=== PATIENT | male | born 1950 | race Caucasian/White ===

== ENCOUNTER → 2018-08-11 | Day surgery (SDC) | payer BC ==
[2018-08-08 14:56] LABS: BASOPHILS % 0.5 % (0.0-1.0); EOSINOPHILS # (AUTO) 0.1 (0.0-0.4); EOSINOPHILS % 1.4 % (0.0-6.0); HEMATOCRIT 32.5 % (38.2-49.6); HEMOGLOBIN 10.8 g/dL (14.0-18.0); LYMPHOCYTES # (AUTO) 1.1 (1.0-3.2); LYMPHOCYTES % 19.6 % (18.0-39.1); MEAN CORPUSCULAR HEMOGLOBIN 30.6 pg (28-32); MEAN CORPUSCULAR HGB CONC 33.2 g/dL (31-35); MEAN CORPUSCULAR VOLUME 92.1 fL (81-99); MONOCYTES # (AUTO) 0.5 (0.2-0.8); MONOCYTES % 9.1 % (4.4-11.3); NEUTROPHILS % 69.1 % (38.7-80.0); PLATELET COUNT 226 x10e3/uL (140-360); RED BLOOD COUNT 3.53 x10e6/uL (4.3-5.7)
[~2018-08-11] MED LIST: AMIODARONE HCL200 MG PO; ASPIR-LOW81 MG PO; DEXTROSE 50% SYRINGE 50 ML IV ONE; FENTANYL CITRATE/PF 100MCG/2 ML INJ ONE; FUROSEMIDE20 MG PO; GLIMEPIRIDE2 MG PO; LEVOTHYROXINE88 MCG PO; LIDOCAINE HCL 2% LOCAL INJ 5 ML SDV VIAL INJ ONE; METFORMIN HCL500 MG PO; METOPROLOL TART50 MG PO; MIDAZOLAM HCL 2 MG/2 ML VIAL ONE; PROPOFOL IV EMULSION 10 MG/ML 50 ML VIAL ONE; SIMVASTATIN10 MG PO; ZESTRIL20 MG PO
--- OUTSIDE RECORDS SUMMARY | 2018-08-11 11:44 | XMS REPORT ---
[facility] Address Unknown Phone Unavailable Care Team Providers Care Tow Truck Operator Name Role Phone Unavailable Unavailable Payers Payer Name Policy Type Policy Number Effective Date Expiration Date Problems This patient has no known problems. Allergies, Adverse Reactions, Alerts Allergy Name Allergy Type Status Severity Reaction(s) Onset Date Inactive Date Treating Clinician Comments No Known Allergies DA Active U 2012-09-27 00:00:00 Medications This patient has no known medications. Results Test Description Test Time Test Comments Text Results Atomic Results Result Comments GLUBED 2018-06-16 16:25:00 GLUBED (test code=GLUBED) 96 mg/dL 74-106 Performed by certified pilot plant operator helper at [facility] [id number] 12:17:00* Test Item Value Reference Range Comments GLUBED (test code=GLUBED) 107 mg/dL 74-106 Performed by certified pilot plant operator helper at [facility] [id number] 07:59:00* Test Item Value Reference Range Comments GLUBED (test code=GLUBED) 109 mg/dL 74-106 Performed by certified pilot plant operator helper at [facility] [id number] 05:23:00* Test Item Value Reference Range Comments GLUBED (test code=GLUBED) 98 mg/dL 74-106 Performed by certified pilot plant operator helper at [facility] [id number] 20:55:00* Test Item Value Reference Range Comments GLUBED (test code=GLUBED) 78 mg/dL 74-106 Performed by certified pilot plant operator helper at [facility] [id number] 18:06:00* Test Item Value Reference Range Comments GLUBED (test code=GLUBED) 84 mg/dL 74-106 Performed by certified pilot plant operator helper at [facility] [id number] 17:13:00* Test Item Value Reference Range Comments GLUBED (test code=GLUBED) 51 mg/dL 74-106 Performed by certified pilot plant operator helper at [facility] THYROID PROFILE [id number] 14:13:00* Test Item Value Reference Range Comments T3 UPTAKE (test code=T3UP) 37.0 % 30.0-40.0 T4 (THYROXINE) (test code=T4) 8.7 ug/dL 4.5-13.9 T7 (FREE THYROXINE INDEX) (test code=T7) 3.21 FTI 1.3-5.1 THYROID STIMULATING HORMONE (test code=TSH) 1.450 uIU/mL 0.36-3.74 TSH REFERENCE RANGES: EUTHYROID: 0.35 - 4.3 mIU/mL HYPO : > 5.5 mIU/mL HYPER : < 0.35 mIU/mL CPK-MB [id number] 14:05:00* Test Item Value Reference Range Comments CREATINE KINASE (CK) (test code=CK) 119 IUnit/L 26-208 CKMB (test code=CKMBT) 2.6 ng/mL 0-6.0 RELATIVE % INDEX (test code=REL%) 2.18 % 0.00-2.50 "If the total CK is elevated, the CKMB Fraction must beinterpreted as a Relative % Index, Normal is less than 2.5%"NOTE: Relative % Index is not valid with a normal total CK. [id number] 12:59:00* Test Item Value Reference Range Comments TROPONIN-I (test code=TROPI) 0.040 ng/mL 0-0.045 COMMENTS TO MOTORBOAT MECHANIC INBOARD: COLLECT 3 HOURS AFTER PREVIOUS [id number] 12:23:00* Test Item Value Reference Range Comments GLUBED (test code=GLUBED) 89 mg/dL 74-106 Performed by certified pilot plant operator helper at [facility] [id number] 08:06:00* Test Item Value Reference Range Comments TROPONIN-I (test code=TROPI) 0.053 ng/mL 0-0.045 COMMENTS TO MOTORBOAT MECHANIC INBOARD: COLLECT 3 HOURS AFTER PREVIOUS [id number] 07:41:00* Test Item Value Reference Range Comments GLUBED (test code=GLUBED) 102 mg/dL 74-106 Performed by certified pilot plant operator helper at [facility] [id number] 03:42:00* Test Item Value Reference Range Comments TROPONIN-I (test code=TROPI) 0.068 ng/mL 0-0.045 RESULT VERIFIED BY REPEAT ANALYSIS LAST DRAW [id number] 22:04:00* Test Item Value Reference Range Comments TROPONIN-I (test code=TROPI) 0.059 ng/mL 0-0.045 Results called to [id number] by V.LAB. 06/14/18 2204Critical results verified and read back by Nurse? Y TROPONIN I [id number] 20:39:00* Test Item Value Reference Range Comments TROPONIN I RAPID (test code=TROPIRAP) 0.05 ng/mL <0.08 Please Note New Reference Range 0.00-0.079 ng/mL - Negative>or=0.08 ng/mL - Positive The use of serial sampling and testing protocol is arecommended practice.An elevated troponin level alone is often not sufficient fordiagnosis of myocardial infarction. Troponin results obtained by different assays may vary.Evaluation of the extent of myocardial damage based onincrease of troponin would be valid only if similarmethodology is used. BASIC METABOLIC [id number] 15:57:00* Test Item Value Reference Range Comments SODIUM (test code=NA) 141 mmol/L 136-145 POTASSIUM (test code=K) 3.6 mmol/L 3.5-5.1 CHLORIDE (test code=CL) 104.0 mmol/L 98-107 CARBON DIOXIDE (test code=CO2) 31.0 mmol/L 21-32 ANION GAP (test code=GAP) 9.6 10-20 GLUCOSE (test code=GLU) 89 mg/dL 74-106 BLOOD UREA NITROGEN (test code=BUN) 29 mg/dL 7-18 GLOMERULAR FILTRATION RATE (test code=GFR) 40 mL/min >=60 Estimated GFR by using Modified MDRD formula.Chronic kidney disease is defined as either kidney damageor GFR <60 mL/min/1.73 m2 for >3 months. CREATININE (test code=CREAT) 1.70 mg/dL 0.7-1.3 BUN/CREATININE RATIO (test code=BUN/CREA) 17.4 10-20 CALCIUM (test code=CA) 8.6 mg/dL 8.5-10.1 [id number] 15:57:00* Test Item Value Reference Range Comments TROPONIN-I (test code=TROPI) <0.015 ng/mL 0-0.045 BASIC METABOLIC [id number] 15:34:00* Test Item Value Reference Range Comments SODIUM (test code=NA) 141 mmol/L 136-145 POTASSIUM (test code=K) 3.6 mmol/L 3.5-5.1 CHLORIDE (test code=CL) 104.0 mmol/L 98-107 CARBON DIOXIDE (test code=CO2) mmol/L 21-32 ANION GAP (test code=GAP) 10-20 GLUCOSE (test code=GLU) mg/dL 74-106 BLOOD UREA NITROGEN (test code=BUN) mg/dL 7-18 GLOMERULAR FILTRATION RATE (test code=GFR) mL/min >=60 CREATININE (test code=CREAT) mg/dL 0.7-1.3 BUN/CREATININE RATIO (test code=BUN/CREA) 10-20 CALCIUM (test code=CA) mg/dL 8.5-10.1 [id number] 15:34:00* Test Item Value Reference Range Comments TROPONIN-I (test code=TROPI) ng/mL 0-0.045 TROPONIN I [id number] 15:24:00* Test Item Value Reference Range Comments TROPONIN I RAPID (test code=TROPIRAP) 0.02 ng/mL <0.08 Please Note New Reference Range 0.00-0.079 ng/mL - Negative>or=0.08 ng/mL - Positive The use of serial sampling and testing protocol is arecommended practice.An elevated troponin level alone is often not sufficient fordiagnosis of myocardial infarction. Troponin results obtained by different assays may vary.Evaluation of the extent of myocardial damage based onincrease of troponin would be valid only if similarmethodology is used. CBC W/O [id number] 15:24:00* Test Item Value Reference Range Comments WHITE BLOOD CELL (test code=WBC) 7.5 K/mm3 4.5-12.5 RED BLOOD CELL (test code=RBC) 3.90 mill/mm3 4.0-5.8 HEMOGLOBIN (test code=HGB) 11.9 gram/dL 13.0-17.5 HEMATOCRIT (test code=HCT) 36.8 % 42.0-52.0 MEAN CELL VOLUME (test code=MCV) 94.4 fL 80-98 MEAN CELL HGB (test code=MCH) 30.5 picogram 27.0-33.0 MEAN CELL HGB CONCETRATION (test code=MCHC) 32.3 gram/dL 33.0-36.0 RED CELL DISTRIBUTION WIDTH (test code=RDW) 12.4 % 11.6-16.2 PLATELET COUNT (test code=PLT) 226 K/mm3 150-450 MEAN PLATELET VOLUME (test code=MPV) 9.9 fL 6.7-11.0 - XR CHEST 1 [id number] 14:59:00 FAX: Lyn Thomas DO [place]: B St: REG FAX: Popeye Bradshaw MD [phone] Name: [facility] : 1950 Age/S: 67/M [address] [facility] Unit #: [id number] Loc: [place] [address] Phys: Lyn Thomas DO Acct: [id number] Dis Date: Status: REG ER PHONE #: [phone] Exam Date: 06/14/2018 1440 FAX #: [phone] Reason: CHEST PAIN EXAMS: CPT CODE: [id number] XR CHEST 1 V [id number] REASON FOR EXAM: CHEST PAIN Exam Order Date: 06/14/2018 2:32 PM Ordering MKumar: Lyn Thomas DO PROCEDURE: - XR CHEST 1 V COMPARISON: AP chest x-ray September 28, 2012 FINDINGS: The lungs are clear. There is no pleural effusion or pneumothorax. Pulmonary vascularity is within normal limits. Cardiomediastinal silhouette is normal in size for technique. The mediastinal contours are within normal limits. Atherosclerotic disease is present in the aortic arch. Musculoskeletal structures are within normal limits. There has been a prior cholecystectomy. IMPRESSION: No acute cardiopulmonary process. Elec tronically Signed by Aba Erazo MD on 06/14/2018 at 8584 Reported and signed by: Aba Erazo MD CC: Lyn Thomas DO; Popeye Gonzalez Technologist: Kayden SHI(R) Trnscrd Date/Time/By: 06/14/2018 (5515) : By: [email or web address] Orig Print D/T: S: 06/14/2018 (4389) PAGE 1 Signed Report
--- OUTSIDE RECORDS SUMMARY | 2018-08-11 11:44 | XMS REPORT | Summary of Care ---
Author Author [facility] [place] Address Unknown Phone Unavailable Encounter SARA Friedman(FIN) [id number] Date(s): 08/07/18 - 08/07/[address] [facility] [place] [address] [place], [place] [address]- [phone] Discharge Disposition: Home or Self Care Attending Physician: Paul Kong MD Referring Physician: Popeye Lovett MD Vital Signs Most recent to 1 oldest [Reference Range]: Height 170.18 cm (08/07/18 3:00 PM) Temperature Oral 98.4 DegF [96.4-99.1 DegF] (08/07/18 3:00 PM) Blood Pressure 117/69 mmHg [90-140/60-90 mmHg] (08/07/18 3:00 PM) Peripheral Pulse 56 bpm Rate [60-100 bpm] *LOW* (08/07/18 3:00 PM) Weight 92.869 kg (08/07/18 3:00 PM) Body Mass Index 32.07 m2 (08/07/18 3:00 PM) Problem List Condition Effective Dates Status Health Status Informant Simple Active obesity(Confirmed) Allergies, Adverse Reactions, Alerts Substance Reaction Severity Status NKDA Active Medications No Known Medications Results No data available for this section Immunizations No data available for this section Procedures No data available for this section Social History Social History Type Response Smoking Status Never smoker; Exposure to Tobacco Smoke None; Cigarette Smoking Last 365 Days No; Reg Smoking Cessation Counseling No entered on: 08/07/18 Assessment and Plan No data available for this section
--- OUTSIDE RECORDS SUMMARY | 2018-08-11 11:44 | XMS REPORT | Summary of Care ---
Author Author [facility] Organization [facility] Address Unknown Phone Unavailable Encounter HQ Encntr_alias(FIN) [id number] Date(s): 08/08/18 - 08/08/18 [facility] [address] [place] [address]- Discharge Disposition: Home or Self Care Attending Physician: Rl Jauregui MD Vital Signs No data available for this section Problem List Condition Effective Dates Status Health Status Informant Simple Active obesity(Confirmed) Allergies, Adverse Reactions, Alerts Substance Reaction Severity Status NKDA Active Medications No data available for this section Results No data available for this section [...]
--- OUTSIDE RECORDS SUMMARY | 2018-08-11 11:44 | XMS REPORT | Summary of Care ---
Author Author Honorio FRANK, Nava Ruano Unknown Address Unknown Phone Unavailable Care Team Providers Care Manager Case Management Name Role Phone JULIÁN Rushing, JADON Unavailable Unavailable JULIÁN KENDRICK PA, JADON Umanzor Unavailable Unavailable Torey KENDRICK, Fabien Unavailable Unavailable DINA JUNIORP, EDUARDO Unavailable Unavailable KANDY KENDRICK PA, ALYCIA CORRAL Unavailable Unavailable Unavailable Unavailable Functional Status Name Dates Details Functional status health issues are not documented Status: Name Dates Details Cognitive status health issues are not documented Status: Problems Name Dates Details Erectile dysfunction (607.84, N52.9) Status: Active Sleep apnea (780.57, G47.30) Status: Active Microalbuminuria (791.0, R80.9) Status: Active Need for pneumococcal vaccine (V03.82, Z23) Status: Active Shortness of breath at rest (786.05, R06.02) Status: Active Chest pain (786.50, R07.9) Status: Active Aneurysm (442.9, I72.9) Status: Active Hypercholesterolemia (272.0, E78.00) Status: Active Moderate aortic regurgitation (424.1, I35.1) Status: Active Testicular pain, right (608.9, N50.811) Status: Active Influenza vaccine needed (V04.81, Z23) Status: Active Hydrocele, right (603.9, N43.3) Status: Active Varicocele present on ultrasound of scrotum (456.4, I86.1) Status: Active Ascending aortic aneurysm (441.2, I71.2) Status: Active Mild aortic regurgitation (424.1, I35.1) Status: Active Abnormal EKG (794.31, R94.31) Status: Active Paroxysmal atrial fibrillation (427.31, I48.0) Status: Active Primary hypertension (401.9, I10) Status: Active Controlled type 2 diabetes mellitus without complication (250.00, E11.9) Status: Active Hypothyroidism (244.9, E03.9) Status: Active Inguinal hernia, right (550.90, K40.90) Status: Active Anemia (285.9, D64.9) Status: Active Medications Name Dates Details Furosemide 20 MG Oral Tablet TAKE 1 TABLET DAILY. Quantity: 90 JADON GALLEGO M.D. * Start : 06-Mar-2013 Active Simvastatin 40 MG Oral Tablet TAKE 1 TABLET DAILY * Quantity: 90 Refills: 3 JADON GALLEGO M.D. * Start : 28-May-2013 Active Lisinopril 20 MG Oral Tablet TAKE 1 TABLET DAILY. * Quantity: 90 Refills: 1 JADON GALLEGO M.D. * Start : 20-Feb-2013 Active Metoprolol Succinate ER 50 MG Oral Tablet Extended Release 24 Hour TAKE 1/2 TABLET BY MOUTH EVERY DAY * Quantity: 8 Refills: 0 JADON GALLEGO M.D. * Start : 22-Sep-2015 Active FreeStyle Unistick II Lancets USE DIRECTED * Quantity: 100 Refills: 3 JADON GALLEGO M.D. * Start : 14-Mar-2013 Active FreeStyle Lite Test In Vitro Strip UES TO CHECK BLOOD SUGAR TWICE DAILY * Quantity: 100 Refills: 1 JADON GALLEGO M.D. * Start : 04-May-2013 Active metFORMIN HCl ER 500 MG Oral Tablet Extended Release 24 Hour TAKE 2 TABLETS BY MOUTH TWICE A DAY * Quantity: 360 Refills: 1 JADON GALLEGO M.D. * Start : 11-Aug-2018 Active Glimepiride 2 MG Oral Tablet TAKE 1 TABLET DAILY * Quantity: 90 Refills: 3 JADON GALLEGO M.D. * Start : 13-Oct-2015 Active Levothyroxine Sodium 88 MCG Oral Tablet TAKE 1 TABLET BY MOUTH EVERY MORNING * Quantity: 90 Refills: 1 JADON GALLEGO M.D. * Start : 10-Nov-2015 Active Cialis 20 MG Oral Tablet TAKE 1 TABLET 1 HOUR BEFORE ACTIVITY NEEDED. * Quantity: 6 Refills: 3 JADON GALLEGO M.D. * Start : 30-Jan-2016 Active Aspirin 81 MG TABS TAKE 2 TABLETS DAILY * Refills: 0 Active Accu-Chek Rama Plus In Vitro Strip TEST 3 TIMES DAILY. * Quantity: 90 Refills: 3 JADON GALLEGO M.D. * Start : 14-May-2016 Active Accu-Chek FastClix Lancets 3 times daily- FOR ACCU-CHEK RAMA CONNECT GLUCOMETER * Quantity: 9 Refills: 3 JADON GALLEGO M.D. * Start : 14-May-2016 Active Amiodarone HCl - 200 MG Oral Tablet TAKE 1 TABLET DAILY.- DR BAEZA * Refills: 0 Active Allergies and Adverse Reactions Name Dates Details No Known Drug Allergies (Allergy) Status: Active Past Medical History Name Dates Details Influenza vaccine needed (V04.81, Z23) Status: Active History of Anginal equivalent (413.9, I20.8) Status: Resolved History of atrial fibrillation (V12.59, Z86.79) Status: Resolved History of cardiac arrhythmia (V12.59, Z86.79) Status: Resolved History of Contusion of right lower extremity, initial encounter (924.5, S80.11XA) Status: Resolved History of essential hypertension (V12.59, Z86.79) Status: Resolved History of hyperlipidemia (V12.29, Z86.39) Status: Resolved History of Onychomycosis of toenail (110.1, B35.1) Status: Resolved History of Other specified cardiac arrhythmias (427.89, I49.8) Status: Resolved History of Skin abrasion (919.0, T14.8XXA) Status: Resolved History of Skin lesion of left leg (709.9, L98.9) Status: Resolved History of sleep apnea (V13.89, Z86.69) Status: Resolved History of type 2 diabetes mellitus (V12.29, Z86.39) Status: Resolved History of Uncontrolled diabetes mellitus (250.02, E11.65) Status: Resolved Procedures Procedure Dates Details History of Tonsillectomy Completed History of Cholecystectomy Completed Immunization Name Dates Details Pneumococcal polysaccharide vaccine, 23 valent on: 22-Sep-2005 Td on: 16-Aug-2008 Influenza on: 07-Jan-2009 Influenza on: 15-Feb-2012 Influenza on: 15-Feb-2012 Fluzone INJ Lot #: [id number] on: 23-Feb-2013 Fluzone INJ Lot #: [id number] on: 07-Feb-2014 Influenza on: Dec-2014 Prevnar 13 Intramuscular Suspension Lot #: [id number] on: 31-Jan-2015 Fluzone High-Dose 0.5 ML Intramuscular Suspension Prefilled Syringe Lot #: [id number] on: 30-Jan-2016 Influenza, seasonal, injectable on: 16-Nov-2016 Fluzone High-Dose 0.5 ML Intramuscular Suspension Prefilled Syringe Lot #: [id number] on: 07-Apr-2018 Family History Name Dates Details Family history of Hypertension (V17.49) Status: Active Name Dates Details Family history of Rheumatoid Arthritis Status: Active Social History Name Dates Details - Status: Name Dates Details Never smoker Vital Signs Date Test Result Details [id number] BP Systolic 124 mm[Hg] Status: Comments: Location: LUE; Position: Sitting BP Diastolic 69 mm[Hg] Status: Comments: Location: LUE; Position: Sitting Height 69 in Status: Weight 210.6 lb Status: Body Mass Index Calculated 31.1 kg/m2 Status: Body Surface Area Calculated 2.11 m2 Status: Temperature 98.7 f Status: Comments: Method: Oral Heart Rate 59 /min Status: Respiration Rate 16 /min Status: Results Date Description Value Details :04 [[facility]] LIPID PANEL CHOLESTEROL, TOTAL 116 mg/dl (Normal) Range: <200 HDL CHOLESTEROL 43 mg/dl (Normal) Range: >40 TRIGLYCERIDES 145 mg/dl (Normal) Range: <150 LDL-CHOLESTEROL 50 {MG/DL__CAL} (Normal) Comments: Reference range: <100 Desirable range <100 mg/dL for primary prevention; <70 mg/dL for patients with CHD or diabetic patients with > or=2 CHD risk factors. LDL-C is now calculated using th cm Wyman calculation, which is a validated novel method providing better accuracy than the Friedewald equation in the estimation of LDL-C. Ernesto CARROLL et al. TOM. 2013;310(19): 5883-6651 (http:/ /education.Spectralmind.com/faq/PBZ604) CHOL/HDLC RATIO 2.7 {CALC} (Normal) Range: <5.0 NON HDL CHOLESTEROL 73 {MG/DL__CAL} (Normal) Range: <130 Comments: For patients with diabetes plus 1 major ASCVD risk factor, treating to a non-HDL-C goal of <100 mg/dL (LDL-C of <70 mg/dL) is considered a therapeutic option. :04 [[facility]] MICROALBUMIN, RANDOM URINE (W/CREATININE) Comments: Results verified by repeat analysis on dilution. Reference RangeNot established CREATININE, RANDOM URINE 181 mg/dl (Normal) Range: 20-320 MICROALBUMIN 68.0 mg/dl (Normal) Comments: Results verified by repeat analysis on dilution. Reference RangeNot established MICROALBUMIN/CREATININE RATIO, RANDOM URINE 376 {MCG/MG_CRE} (Above high threshold) Range: <30 Comments: The ADA defines abnormalities in albuminexcretion as follows: Category Result (mcg/mg creatinine) Normal <30Microalbuminuria 30-299 Clinical albuminuria > YE=459 The ADA recommends that at least two of threespecimens collected within a 3-6 month period beabnormal before considering a patient to bewithin a diagnostic category. [id number] [[facility]] CMP W/EGFR GLUCOSE 104 mg/dl (Normal) Range: 65-139 Comments: Non-fasting reference interval UREA NITROGEN (BUN) 28 mg/dl (Above high threshold) Range: 7-25 CREATININE 1.40 mg/dl (Above high threshold) Range: 0.70-1.25 Comments: For patients >49 years of age, the reference limitfor Creatinine is approximately 13% higher for peopleidentified as -Slovak. eGFR NON- 51 {ML/MIN/1.7} (Below low threshold) Range: > OR=60 eGFR 59 {ML/MIN/1.7} (Below low threshold) Range: > OR=60 BUN/CREATININE RATIO 20 {CALC} (Normal) Range: 6-22 SODIUM 141 mmol/L (Normal) Range: 135-146 POTASSIUM 4.1 mmol/L (Normal) Range: 3.5-5.3 CHLORIDE 104 mmol/L (Normal) Range: 98-110 CARBON DIOXIDE 28 mmol/L (Normal) Range: 20-32 CALCIUM 9.1 mg/dl (Normal) Range: 8.6-10.3 PROTEIN, TOTAL 6.4 g/dl (Normal) Range: 6.1-8.1 ALBUMIN 3.9 g/dl (Normal) Range: 3.6-5.1 GLOBULIN 2.5 {G/DL__CALC} (Normal) Range: 1.9-3.7 ALBUMIN/GLOBULIN RATIO 1.6 {CALC} (Normal) Range: 1.0-2.5 BILIRUBIN, TOTAL 0.4 mg/dl (Normal) Range: 0.2-1.2 ALKALINE PHSPHATASE 47 u/l (Normal) Range: 40-115 AST 16 u/l (Normal) Range: 10-35 ALT 12 u/l (Normal) Range: 9-46 :04 [[facility]] CBC (INCLUDES DIFF/PLT) WHITE BLOOD CELL COUNT 4.4 {Thousand/u} (Normal) Range: 3.8-10.8 RED BLOOD CELL COUNT 3.37 {Million/uL} (Below low threshold) Range: 4.20-5.80 HEMAGLOBIN 10.5 g/dl (Below low threshold) Range: 13.2-17.1 HEMATOCRIT 30.5 % (Below low threshold) Range: 38.5-50.0 MCV 90.5 fL (Normal) Range: 80.0-100.0 MCH 31.2 pg (Normal) Range: 27.0-33.0 MCHC 34.4 g/dl (Normal) Range: 32.0-36.0 RDW 12.3 % (Normal) Range: 11.0-15.0 PLATELET COUNT 234 {Thousand/u} (Normal) Range: 140-400 MPV 10.0 fL (Normal) Range: 7.5-12.5 ABSOLUTE NEUTROPHILS 2534 {cells/uL} (Normal) Range: 2671-0683 ABSOLUTE LYMPHOCYTES 1184 {cells/uL} (Normal) Range: 850-3900 ABSOLUTE MONOCYTES 510 {cells/uL} (Normal) Range: 200-950 ABSOLUTE EOSINOPHILS 141 {cells/uL} (Normal) Range: 15-500 ABSOLUTE BASOPHILS 31 {cells/uL} (Normal) Range: 0-200 NEUTROPHILS 57.6 % (Normal) LYMPHOCYTES 26.9 % (Normal) MONOCYTES 11.6 % (Normal) EOSINOPHILS 3.2 % (Normal) BASOPHILS 0.7 % (Normal) :04 [[facility]] TSH, 3RD GENERATION TSH 1.33 {MIU/L} (Normal) Range: 0.40-4.50 :04 [[facility]] HEMOGLOBIN A1c Comments: REPORT COMMENT:FASTING:NO HEMOGLOBIN A1c 5.9 {%_of_total} (Above high threshold) Range: <5.7 Comments: For someone without known diabetes, a hemoglobin A1c value between 5.7% and 6.4% is consistent withprediabetes and should be confirmed with a follow-up test. For someone with known diabetes, a value <7%indicates that their diabetes is well controlled. [id number] should be individualized based on duration ofdiabetes, age, comorbid conditions, and otherconsiderations. This assay result is consistent with an increased riskof diabetes. Currently, no consensus exists regarding use ofhemoglobin A1c for diagnosis of diabetes for children. Plan of Care Name Dates Details Planned Observations Planned Goals not documented Planned Encounters Appointment; JADON GALLEGO M.D. On: 25-Sep-2018 14:00 Interventions Provided Medication Changes* metFORMIN HCl ER 500 MG Oral Tablet Extended Release 24 Hour - Renew Instructions Name Dates Details Instructions not documented Encounters Appointment; JADON GALLEGO M.D. Encounter Diagnosis: Problem not documented On: 03-Sep-2016 15:45 Appointment; JADON GALLEGO M.D. Encounter Diagnosis: Problem not documented On: 03-Dec-2016 14:15 Appointment; JADON GALLEGO M.D. Encounter Diagnosis: Problem not documented On: 16-Feb-2017 15:15 Appointment; FABIEN DAILY M.D. Encounter Diagnosis: Problem not documented On: 20-Apr-2017 8:40 Appointment; JADON GALLEGO M.D. Encounter Diagnosis: Problem not documented On: 19-May-2017 14:00 Appointment; JADON GALLEGO M.D. Encounter Diagnosis: Problem not documented On: 19-Sep-2017 14:00 Appointment; CRISTIANO REYES Encounter Diagnosis: Problem not documented On: 24-Oct-2017 14:00 Appointment; FABIEN DAILY M.D. Encounter Diagnosis: Problem not documented On: 24-Oct-2017 14:40 Appointment; JADON GALLEGO M.D. Encounter Diagnosis: Problem not documented On: 18-Jan-2018 14:45 Appointment; JADON GALLEGO M.D. Encounter Diagnosis: Problem not documented On: 18-Jan-2018 14:45 Appointment; JADON GALLEGO M.D. Encounter Diagnosis: Problem not documented On: 07-Apr-2018 10:30 Appointment; CRISTIANO REYES Encounter Diagnosis: Problem not documented On: 12-Apr-2018 11:00 Appointment; FABIEN DAILY M.D. Encounter Diagnosis: Problem not documented On: 19-Apr-2018 9:00 Appointment; CRISTIANO REYES Encounter Diagnosis: Problem not documented On: 11-May-2018 13:00 Appointment; EDUARDO ARROYO NP Encounter Diagnosis: Problem not documented On: 14-Jun-2018 13:00 Appointment; JADON GALLEGO M.D. Encounter Diagnosis: Problem not documented On: 25-Jul-2018 15:00
--- OUTSIDE RECORDS SUMMARY | 2018-08-11 11:44 | XMS REPORT | Summary of Care ---
Author Author [facility] General Surgery [facility] Organization [facility] General Surgery [facility] Address Unknown Phone Unavailable Encounter HQ Encntr_alisangeetha(FIN) [id number] Date(s): 07/19/18 - 07/19/18 [facility] General Surgery [facility] [address] [address] [place] [address]- [phone] Attending Physician: aPul Kong MD Referring Physician: Popeye Lovett MD Vital Signs No data available for this section Problem List No data available for this section Allergies, Adverse Reactions, Alerts Substance Reaction Severity [...] Reg Smoking Cessation Counseling No entered on: 06/27/18 Assessment and Plan No data available for this section
--- OUTSIDE RECORDS SUMMARY | 2018-08-11 11:44 | XMS REPORT | Summary of Care ---
Author Author [facility] Specialty [facility] Address Unknown Phone Unavailable Encounter HQ Encntr_alias(FIN) [id number] Date(s): 08/02/18 - 08/02/18 [facility] [address] [place], [place] [address]- [phone] Attending Physician: Paul Kong MD Referring Physician: [...]
--- OUTSIDE RECORDS SUMMARY | 2018-08-11 11:44 | XMS REPORT | Continuity of Care Document ---
Author Author [facility] nisha [facility] Interface Address Unknown Phone Unavailable Problems Problem Status Onset Date Classification Date Reported Comments Source Simple obesity Active Problem 08/10/2018 [facility] Medications Medication Details Route Status Patient Instructions Ordering Provider Order Date Source Allergies, Adverse Reactions, Alerts Substance Category Reaction Severity Reaction type Status Date Reported Comments Source Immunizations Immunization Date Given Site Status Last Updated Comments Source Results Order Name Results Value Reference Range Date Interpretation Comments Source Scrotal/Testicle US Scrotal/Testicle US EXAM: US SCROTUM WITH DOPPLER DATE: 04/08/2016 INDICATION: Testicular pain on the right ADDITIONAL INFORMATION: None. COMPARISON: None. TECHNIQUE: Multiplanar grayscale, color Doppler and spectral Doppler ultrasound images of the scrotum and testes. FINDINGS: Right testicle: Size: 4.1 x 2.7 x 3.3 cm. Echogenicity: Normal. Calcifications: None. Cysts: None. Masses: Doppler: Normal. Right epididymis: Normal in size and echogenicity with normal Doppler flow. A small epididymal head cyst measuring 6.8 x 5.7 x 7.2 mm is present. A small -- moderate right-sided hydrocele is present. There is a small right-sided varicocele. Left testicle: Size: 3.8 x 2.1 x 3.0 cm. Echogenicity: Normal. Cysts: None. Masses: None. Doppler: Normal. Left epididymis: Normal in size and echogenicity. Normal Doppler flow. There is no left-sided hydrocele. A small left-sided varicocele is present. Impression: 1. There is no evidence for epididymitis or orchitis. No testicular masses present. 2. A small -- moderate right-sided hydrocele is present. 3. There are small varicoceles bilaterally. 4. A simple cyst is present in the right epididymal head. 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 Axial, coronal and sagittal reconstructions, along with MIP reconstructions, are created at the acquisition workstation. IV contrast: 150 Oral contrast: None. DLP: 908.46 mGy-cm FINDINGS: AORTA: The aorta is measures: 3.9 cm at the ascending aorta at the level of the pulmonary artery, 2.4 cm at the mid arch, 2.5 cm at the descending aorta at the level of the main pulmonary artery, 2.3 cm at the level of the aortic hiatus, 2.1 cm at the level of the renal arteries, and 1.8 cm just proximal to the iliac bifurcation. No significant atherosclerotic plaque. The branching pattern is unremarkable. No dissection or pseudoaneurysm. Lungs and pleura: 6 mm left lower lobe calcified granuloma. No pulmonary or pleural-based abnormality is identified. Mediastinum: Subcentimeter mediastinal lymph nodes are nonspecific. Refer to dedicated cardiac CT for additional findings. Abdomen: Hepatobiliary: Unremarkable. Gallbladder: Surgically absent Spleen: Unremarkable. Pancreas: Unremarkable. Adrenals: Unremarkable. Kidneys: Nonobstructing 7 mm right renal calculus and punctate left renal calculus. No suspicious enhancing lesions. Bowel and mesentery: Colonic diverticulosis is present. Bones: Degenerative changes of the spine. No aggressive osseous lesions. IMPRESSION: 1. Mild ascending aortic ectasia measuring up to 3.9 cm. Otherwise, appearance caliber and branching pattern of the aorta as above. 2. Nonobstructing renal calculi. 04/13/2018 - - This report was dictated by a Farm Advisor/Fellow/Physician Mold Dresser. I have personally reviewed the images as well as the interpretation and agree with the findings. 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 There are prominent osteophytes posteriorly in the mid and lower thoracic spine. HEART: [Normal in size and configuration] Mediastinum and Kiana: The aortic arch is minimally prominent. The descending thoracic aorta is unremarkable. Lungs: There is mildly prominent density at the level of the 1st costochondral junctions bilaterally which is likely from osteophytes. The lungs are otherwise unremarkable. IMPRESSION: 1. Increased density at the 1st costochondral junctions bilaterally. This is slightly more prominent on the left side and likely caused by osteophytes. Because there is no comparison plain radiograph for comparison, a follow-up exam is suggested in 3-4 months in order to make sure that there is no change in the appearance of these hazy densities. The lungs are otherwise clear. 04/13/2018 - - Read by: Irving Stanley MD Dictated Date/time: 04/13/18 10:25 Electronically Signed by: Irving Stanley MD 04/13/18 10:30 FINAL REPORT [facility] Vital Signs Vital Sign Value Date Comments Source Height 170.18 cm 08/07/2018 [facility] Weight 92.869 08/07/2018 [facility] BMI Calculated 32.07 08/07/2018 [facility] Systolic (mm Hg) 117 08/07/2018 [facility] Diastolic (mm Hg) 69 08/07/2018 [facility] Temperature Oral (F) 98.4 F 08/07/2018 [facility] Heart Rate 56 08/07/2018 [facility] Encounters Location Location Details Encounter Type Encounter Number Reason For Visit Attending Provider ADM Date DC Date Status Source Outpatient [id number] LOLIS JAUREGUI 06/27/2018 Active [facility] Outpatient [id number] [facility] 07/19/2018 Active [facility] Outpatient [id number] [facility] 07/19/2018 Active [facility] General Surgery [facility] Ambulatory Pre-Reg [id number] [facility] 07[facility]19/2018 07/19/2018 [facility] General Surgery [facility] Ambulatory Pre-Reg [id number] [facility] 07/19/2018 07/19/2018 [facility] Outpatient [id number] [facility] 08/02/2018 Active [facility] [place] Ambulatory Pre-Reg [id number] [facility] 08/02/2018 08/02/2018 [facility] Outpatient [id number] [facility] 08/07/2018 Active [facility] [place] Outpatient [id number] [facility] 08/07/2018 08/08/2018 [facility] Outpatient [id number] Lolis Jauregui 08/08/2018 Active [facility] Outpatient [id number] Lolis Jauregui 08/08/2018 08/09/2018 [facility] Outpatient [id number] Lolis Jauregui 08/29/2018 Active [facility] Procedures Procedure Code Date Perfomer Comments Source
[2018-08-11 15:57] LABS: WBC,FECAL (FECAL LACTOFERRIN) NEGATIVE (NEGATIVE)
[2018-08-11 16:53] LABS: % IRON SATURATION 14 % (15-50); IRON 41 ug/dL (65-175); TOTAL IRON BINDING CAPACITY 287 ug/dL (261-478); TRANSFERRIN 205 mg/dL (174-364)
[2018-08-11 17:27] LABS: FOLATE 10.2 ng/mL (7.0-15.4)
[2018-08-11 18:00] VITALS: BP 148/77
--- NOTE | 2018-08-11 23:22 | Operative Report ---
DATE OF PROCEDURE: 08/11/2018 SURGEON: Alok Gates MD PROCEDURE: Esophagogastroduodenoscopy with biopsies and colonoscopy with polypectomy and biopsies. INDICATIONS FOR EGD: Dyspepsia, anemia. INDICATIONS FOR COLONOSCOPY: Anemia, alternating bouts of constipation and diarrhea, history of bright red blood per rectum. MEDICATIONS: The patient was done under MAC, please see anesthesiologist's note. PROCEDURE IN DETAIL: With the patient in left lateral decubitus position, the flexible fiberoptic Olympus gastroscope was introduced into the esophagus under direct visualization without any difficulty. There was some patchy erythema noted in the distal esophagus. The scope was then advanced with ease into the stomach traversing a small sliding hiatal hernia. The mucosa overlying the antrum revealed multiple minute gastric ulcers without active bleeding or stigmata of recent hemorrhage. Biopsies were obtained. The pylorus was intubated with ease and the scope was advanced all the way to the second portion of the duodenum. The scope was then withdrawn slowly and biopsies were obtained from the proximal second portion and duodenal bulb to rule out sprue. The scope was then withdrawn back into the stomach and retroflexed and mucosa overlying the fundus and cardia appeared to be within normal limits. The scope was then straightened out and it was subsequently withdrawn. The patient tolerated the procedure well. IMPRESSION: 1. Distal esophagitis, mild. 2. Small sliding hiatal hernia. 3. Gastric ulcers, minute, antrum, biopsies obtained. 4. Rule out sprue. PLAN: Follow up histology. Initiate Protonix 40 mg one p.o. q.a.m. a.c. The patient was then turned around after adequate lubrication of the anal canal, flexible fiberoptic Olympus colonoscope was inserted into the rectum with ease and advanced all the way to the cecum. Mucosa overlying the cecum appeared to be within normal limits. The ileocecal valve was intubated and the scope was advanced into the terminal ileum. Biopsies were obtained. The scope was then withdrawn back into the colon. It was then withdrawn slowly. Mucosa overlying the ascending and the transverse grossly appeared to be within normal limits. Mild patchy inflammatory changes were noted in the left colon including the rectum and random biopsies were obtained. Diverticular disease was noted to involve the descending and the sigmoid colon. One polyp was hot biopsied from the sigmoid colon. The scope was then retroflexed into the distal rectum and small internal hemorrhoids were noted, none of which was actively bleeding. The scope was then straightened out and it was subsequently withdrawn after securing an adequate stool specimen for the appropriate stool studies. The patient tolerated the procedure well. IMPRESSION: 1. Diverticulosis. 2. Sigmoid colon polyp, hot biopsied. 3. Mild proctosigmoiditis. 4. Internal hemorrhoids, none actively bleeding. PLAN: Follow up histology. Follow up stool studies. Initiate VSL#3 one p.o. daily. The patient might benefit from a followup colonoscopy in 3 to 5 years. Alok Gates MD [facility] /[id number] cc: Popeye Lovett MD
[2018-08-12 13:37] LABS: C DIFFICILE TOXIN A&B AMP PROB NEGATIVE (NEGATIVE)
== END | disposition home or self-care (01) ==
LOC: OR 11:42
PROVIDERS: ATTEND Internal Medicine Gastroenterology
DX: K20.9 Esophagitis, unspecified (principal); D12.5 Benign neoplasm of sigmoid colon; K52.9 Noninfective gastroenteritis and colitis, unspecified; K25.9 Gastric ulcer, unspecified as acute or chronic, without hemorrhage or perforation; K29.60 Other gastritis without bleeding; K59.00 Constipation, unspecified; K44.9 Diaphragmatic hernia without obstruction or gangrene; K21.9 Gastro-esophageal reflux disease without esophagitis; K57.30 Diverticulosis of large intestine without perforation or abscess without bleeding; K63.89 Other specified diseases of intestine; D64.89 Other specified anemias; K62.89 Other specified diseases of anus and rectum; K64.8 Other hemorrhoids; I71.4 Abdominal aortic aneurysm, without rupture; G47.33 Obstructive sleep apnea (adult) (pediatric); I10 Essential (primary) hypertension; E11.9 Type 2 diabetes mellitus without complications; F32.9 Major depressive disorder, single episode, unspecified; Z01.812 Encounter for preprocedural laboratory examination; Z79.82 Long term (current) use of aspirin; Z79.84 Long term (current) use of oral hypoglycemic drugs; Z68.31 Body mass index [BMI] 31.0-31.9, adult; Z96.641 Presence of right artificial hip joint
CPT/HCPCS: 36415 ×2; 43239; 45380; 45384; 82607; 82746; 82948; 83540; 83630; 83993; 84466; 85025; 85045; 87045; 87177; 87328; 87493; J2001; J2250; J2704; J7799; 45378